=== PATIENT | female | born 1975 | race African-American/Black ===

== ENCOUNTER 2021-04-15 11:34 | Emergency (ER) | payer OTHER ==
[~2021-04-15] VITALS: Ht 152.4 cm; Wt 81.6 kg
[2021-04-15] MEDS ORDERED: NORVASC5 MG PO (12:06)
[2021-04-15] MEDS ORDERED: INDERAL LA80 MG (12:07)
[2021-04-15] MEDS ORDERED: MEDROLPACK PO (16:09)
[2021-04-15] MEDS ORDERED: AMOX-CLAV 875-1 EACH PO (16:09)
[2021-04-15] MEDS ORDERED: TUSSI PRES-B L480 ML PO (16:09)
== END 2021-04-15 16:33 | disposition home or self-care (01) ==
LOC: ER 11:34
DX: J06.9 Acute upper respiratory infection, unspecified (principal); R05.9 Cough, unspecified; R09.81 Nasal congestion; J02.9 Acute pharyngitis, unspecified